=== PATIENT | male | born 1955 | race Caucasian/White ===

== ENCOUNTER 2023-07-01 19:44 | Observation (INO) | payer BC, OTHER ==
[2023-07-01] MEDS ORDERED: SODIUM CHLORIDE 0.9% 1,000 ML IV STA (20:01)
[2023-07-01] MEDS ORDERED: HYDROmorphone 0.5 MG/0.5 ML SYRINGE IVP STA (20:14)
[2023-07-01 20:21] LABS: Basophils % (A) 0 %; Eosinophils # (A) 0.3 k/uL (0-0.7); Eosinophils % (A) 2 %; HCT 39.8 % (39.0-53.0); HGB 13.4 gm/dL (13.0-17.5); Lymphocytes % (A) 13 %; MCHC 33.7 g/dL (31.0-37.0); MCV 92.1 fL (80.0-100.0); Mean Platelet Volume 7.1; Monocytes # (A) 0.7 k/uL (0-1.0); Monocytes % (A) 5 %; Neutrophils # (A) 11.7 k/uL (1.3-7.7); Neutrophils % (A) 79 %; Platelet Count 374 k/uL (150-450); RBC 4.32 m/uL (4.30-5.90); WBC 14.7 k/uL (3.8-10.6)
[2023-07-01 20:38] LABS: ALT 19 U/L (4-49); AST 18 U/L (17-59); African American GFR (CKD) >90 (>60 ml/min/1.73 sqM); Albumin 3.2 g/dL (3.5-5.0); Alkaline Phosphatase 65 U/L (38-126); Anion Gap 5 mmol/L; Blood Urea Nitrogen 14 mg/dL (9-20); Calcium 10.1 mg/dL (8.4-10.2); Carbon Dioxide 25 mmol/L (22-30); Chloride 107 mmol/L (98-107); Glucose 101 mg/dL (74-99); Lipase 18 U/L (23-300); Non-African American GFR(CKD) >90 (>60 ml/min/1.73 sqM); Potassium 3.8 mmol/L (3.5-5.1); Sodium 137 mmol/L (137-145); Total Bilirubin 0.7 mg/dL (0.2-1.3)
--- NOTE | 2023-07-01 21:29 | XR ---
EXAMINATION TYPE: XR KUB DATE OF EXAM: 07/01/2023 8:53 PM INDICATION: Patient age:Male; 67 years old; Reason for study: peg tube placement; COMPARISON: None. TECHNIQUE: One radiographic view of the abdomen was obtained. FINDINGS: PEG tube projects over the left upper quadrant. The bowel gas pattern is nonspecific withou t dilated loops of small or large bowel. There is no evidence for organomegaly or pneumoperitoneum. The osseous structures are intact. No abnormal calcifications are present. Fecal material and gas ar e demonstrated throughout the colon and rectum. IMPRESSION: 1. PEG tube projects over the left upper quadrant. Consider PEG O GRAM to ensure placement in the ga stric lumen. 2. Nonspecific bowel gas pattern without radiographic evidence for acute process.
--- NOTE | 2023-07-01 21:44 | XR ---
EXAMINATION TYPE: XR KUB DATE OF EXAM: 07/01/2023 9:23 PM INDICATION: Patient age:Male; 67 years old; Reason for study: PEG TUBE PLACEMENT; COMPARISON: Same day KUB. TECHNIQUE: TECHNIQUE: AP radiographs of the abdomen were obtained prior to and following administrati on of 60 cc Gastrografin via the patient's PEG tube. Fluoroscopic time:0 min Fluoroscopic images:0 Radiographs taken: 1 FINDINGS: Prior radiograph demonstrates a PEG tube projecting over the region of the stomach. Postcon trast images demonstrate opacification of the gastric lumen without evidence of extravasation of cont rast. Degenerative disc disease is noted throughout the spine. Impression: Opacification of the gastric lumen without evidence of extravasation contrast, consistent with approp riate PEG tube placement.
[2023-07-01] MEDS ORDERED: NALOXONE 0.4 MG/ML 1 ML VIAL IV PRN (22:23)
[2023-07-01] MEDS: SODIUM CHLORIDE 0.9% 1,000 ML IV SCH (22:48)
[2023-07-01] MEDS ORDERED: MELATONIN 3 MG TABLET PO STA (23:58)
[2023-07-02] MEDS: HYDROmorphone 0.5 MG/0.5 ML SYRINGE IVP PRN ×3 (02:31→17:47)
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
[2023-07-02 07:58] LABS: Appearance,Urine Clear (Clear); Bilirubin,Urine Negative (Negative); Blood,Urine Negative (Negative); Color,Urine Yellow; Glucose,Urine (UA) Negative (Negative); Ketones,Urine Negative (Negative); Leukocyte Esterase,Urine Negative (Negative); Nitrite,Urine Negative (Negative); PH, Urine 5.5 (5.0-8.0); Protein,Urine Trace (Negative); Specific Gravity,Urine 1.023 (1.001-1.035); Urobilinogen,Urine <2.0 mg/dL (<2.0)
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
[2023-07-02] MEDS: SODIUM CHLORIDE 0.9% 1,000 ML IV SCH (12:19)
[2023-07-02] MEDS: clonazePAM 0.5 MG TAB PO PRN (12:27)
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
[2023-07-02] MEDS ORDERED: LORazepam 2 MG/ML INJ IV ONE (21:00)
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
[2023-07-03] MEDS: SODIUM CHLORIDE 0.9% 1,000 ML IV SCH ×2 (01:44→17:28)
[2023-07-03] MEDS: PANTOPRAZOLE 40 MG TABLET PO SCH ×2 (08:53→20:58)
[2023-07-03] MEDS: ATORVASTATIN 40 MG TAB PO SCH (08:53)
[2023-07-03 08:58] LABS: Blood Urea Nitrogen 10.2 mg/dL (9.0-27.0); Calcium 9.8 mg/dL (8.7-10.3); Carbon Dioxide 24.4 mmol/L (21.6-31.8); Chloride 107 mmol/L (96-109); Glucose 85 mg/dL (70-110); Potassium 3.9 mmol/L (3.5-5.5); Sodium 139 mmol/L (135-145)
[2023-07-03] MEDS ORDERED: FAMOTIDINE 20 MG TAB PO SCH (09:00)
[2023-07-03] MEDS: HEPARIN SODIUM,PORCINE 5,000 UNIT/ML 1 ML VIAL SQ SCH ×2 (09:27→20:57)
[2023-07-03] MEDS: HYDROmorphone 0.5 MG/0.5 ML SYRINGE IVP PRN ×2 (10:05→13:25)
[2023-07-03 10:59] LABS: Basophils # (A) 0.07 X 10*3/uL (0.00-0.10); Basophils % (A) 0.8 %; Eosinophils # (A) 0.75 X 10*3/uL (0.04-0.35); Eosinophils % (A) 8.2 %; HCT 37.8 % (39.6-50.0); HGB 12.2 d/dL (13.0-17.0); Lymphocytes # (A) 2.47 X 10*3/uL (0.90-5.00); MCH 30.2 pg (27.0-32.0); MCHC 32.3 d/dL (32.0-37.0); MCV 93.6 FL (80.0-97.0); Mean Platelet Volume 9.6 FL (9.5-12.2); Monocytes # (A) 1.11 X 10*3/uL (0.20-1.00); Monocytes % (A) 12.1 %; NRBC Per 100 WBC 0 X 10*3/uL (0.00-0.01); Neutrophils # (A) 4.69 X 10*3/uL (1.80-7.70); Neutrophils % (A) 51.2 %; Platelet Count 387 X 10*3/uL (140-440); RBC 4.04 X 10*6/uL (4.40-5.60); RDW 13.2 % (11.5-14.5); WBC 9.15 X 10*3/uL (4.50-10.00)
--- NOTE | 2023-07-03 12:30 | P.PN ---
Progress Note - Text Progress Note Date: 07/03/23 Orthopedic spine: History of present illness: Patient is a very pleasant 67-year-old male who is seen and examined at bedside for follow-up evaluation of his lumbar spine. He was seen and examined yesterday from an orthopedic standpoint. Patient states currently he is not experiencing any significant low back pain. He denies any lower extremity weakness or radiculopathy bilaterally. He states his back pain is well- controlled. He was able to ambulate the halls today with physical therapy without assistance. He has good range of motion of his bilateral upper extremities and lower extremities without weakness. He does admit to following with Dr. Avery in the outpatient setting and recently underwent an injection at his lumbar spine. He has had previous imaging performed in the outpatient setting but this imaging is not currently available for visualization. Patient does not currently feel he needs treatment specifically in regards to his lumbar spine. Patient is being seen by multiple other medical providers. He does have a r ecent history of bowel perforation requiring surgical intervention. He did fail a barium swallow study and had a PEG tube placement at [facility] on 06/30/2023. Patient did leave the hospital AMA following his PEG tube placement is states he does not know how to manage his PEG tube. Currently he states he is admitted for PEG tube management. Patient's other medical diagnoses include poor oral intake, anxiety, COPD, current every day smoker, history of CA, and history of alcohol abuse. Physical exam: Patient is awake, alert, and oriented 3 Vital signs stable Good chest excursion with deep inspiration and expiration Abdomen soft nontender Examination of lumbar spine reveals skin is intact with no abrasions, lacerations, or bruises; no erythema, purulence or signs of infection Dorsiflexion, plantarflexion, and extensor hallucis longus positive sustained bilaterally Lower extremity strength 5/5 bilaterally Patellar reflex 2+ bilaterally and Achilles reflexes 2+ bilaterally No lower extremity hyperreflexia bilaterally Straight leg test negative bilateral lower extremities Negative Lasegue's test bilaterally No signs or symptoms of DVT; no calf pain No pain with internal and external rotation of the hips bilaterally Neurovascularly intact Assessment: Acute on chronic low back pain, not currently complaining of any significant low back pain History of recent PEG tube placement on 06/30/[address] [facility] after failed swallow study History of bowel perforation requiring surgical intervention COPD Current every day smoker History of CA Anxiety Alcohol abuse Poor oral intake Plan: 1. After physical examination of the patient and further discussion with the patient, we currently planning for him to continue with conservative treatment regards to the patient's lumbar spine. Consultation was placed for low back pain. Patient was seen and examined yesterday in this regard from an orthopedic standpoint. Patient states today he is not experiencing any significant low back pain. He denies any lower extremity weakness or radiculopathy bilaterally. He has good range of motion of his upper extremities as well denies any upper extremity weakness or radiculopathy. He does admit to treatment with pain management and the outpatient setting. He does not currently feel he needs any specific treatment regards to his lumbar spine. He was able to ambulate the hallways today without assistance with physical therapy without significant difficulty. At this time, patient will be cleared for discharge from an orthopedic spine standpoint. We did discuss we'll plan to have him follow-up in approximately 3 weeks the outpatient setting for further evaluation. He has had MRI and x-ray imaging performed through Dr. Avery's office. He'll plan to obtain this imaging prior to his scheduled follow-up appointment. Patient may follow-up with Kaushal Gross PA-C or Dr. Haile Tian at [facility] in 3 weeks following discharge. 2. Patient will continue to be seen exam by multiple other medical providers for his other medical diagnoses including PEG tube management following recent PEG tube placement performed on 06/30/2023.
--- NOTE | 2023-07-03 14:04 | XR ---
EXAMINATION TYPE: XR chest 1V portable DATE OF EXAM: 07/03/2023 COMPARISON: 04/13/2015 HISTORY: Shortness of breath TECHNIQUE: Single frontal view of the chest is obtained. FINDINGS: There is no focal air space opacity, pleural effusion, or pneumothorax seen. The cardiac silhouette size is within normal limits. The osseous structures are intact. Hyperinflation. Ectasia of the aorta. Hypertrophic and degenerative change of the spine. There is a nodule measuring 5 mm ri ght midlung. Chronic widening of the left AC joint. IMPRESSION: 1. No acute infiltrate. Diffuse emphysematous changes. 2. There is a new 5 mm right midlung nodule recommend short-term follow-up chest CT.
[2023-07-03 14:57] VITALS: BMI 18.0
[2023-07-03] MEDS: GABAPENTIN 100 MG CAP PO SCH ×2 (17:21→20:57)
--- NOTE | 2023-07-03 20:34 | PN ---
PROGRESS NOTE DATE OF SERVICE: 07/03/2023 HISTORY OF PRESENT ILLNESS: This is a 67-year-old gentleman who was admitted with poor p.o. intake, had a PEG tube placement. The patient apparently left against medical advice from [facility]. The patient complains of significant weakness, PT OT was evaluating the patient for possible ECF rehab at this time. The most recent chest x-ray which was reviewed personally by me showed some increased bronchovascular markings without any definite infiltrate. Pulmonary nodule was noted, recommended outpatient followup. PAST MEDICAL HISTORY: Reviewed. REVIEW OF SYSTEMS: A 14-point review is negative except as mentioned earlier. CURRENT MEDICATIONS: Reviewed include Singulair. OBJECTIVE: VITAL SIGNS: Pulse is 56, blood pressure 140/70, respirations 16. CHEST: Few scattered rhonchi. ABDOMEN: Soft. PEG tube in situ. NERVOUS SYSTEM: Diffusely weak, emaciated. LABORATORIES: Reviewed. ASSESSMENT: 1. Poor p.o. intake and failure to thrive. 2. Status post PEG tube placement and left AMA from [facility]. 3. Generalized gait dysfunction. 4. [id number] malnutrition. 5. Right lung pulmonary nodule, for outpatient followup. 6. Acute on chronic low back pain. 7. Anxiety. 8. History of recent bowel perforation and surgery. 9. Chronic obstructive pulmonary disease. 10.Depression. 11.Multiple medical issues. RECOMMENDATIONS: Recommended to continue current management, continue symptomatic treatment, continue with PEG tube feeds. Otherwise, resume the home medications, PT OT evaluation, closely for possible ECF rehab versus resume the rest of medications. Guarded prognosis. Further recommendations to follow. MMODL / IJN: [id number] /
[2023-07-03] MEDS: clonazePAM 0.5 MG TAB PO PRN (20:57)
[2023-07-03] MEDS ORDERED: QUEtiapine 200 MG TAB PO SCH (21:00)
[2023-07-03] MEDS ORDERED: MONTELUKAST 10 MG TAB PO SCH (21:00)
[2023-07-04 02:50] VITALS: RESP 14
[2023-07-04] MEDS: SODIUM CHLORIDE 0.9% 1,000 ML IV SCH (03:42)
[2023-07-04] MEDS: HYDROmorphone 0.5 MG/0.5 ML SYRINGE IVP PRN ×3 (04:43→14:09)
[2023-07-04 07:18] LABS: Basophils % (A) 0 %; Eosinophils # (A) 0.5 k/uL (0-0.7); Eosinophils % (A) 6 %; HCT 38.7 % (39.0-53.0); HGB 12.9 gm/dL (13.0-17.5); Lymphocytes # (A) 2.5 k/uL (1.0-4.8); Lymphocytes % (A) 31 %; MCHC 33.5 g/dL (31.0-37.0); MCV 92.6 fL (80.0-100.0); Mean Platelet Volume 7.2; Monocytes # (A) 0.7 k/uL (0-1.0); Monocytes % (A) 8 %; Neutrophils # (A) 4.1 k/uL (1.3-7.7); Neutrophils % (A) 51 %; Platelet Count 355 k/uL (150-450); RBC 4.18 m/uL (4.30-5.90); RDW 12.8 % (11.5-15.5)
[2023-07-04] MEDS: PANTOPRAZOLE 40 MG TABLET PO SCH (08:33)
[2023-07-04] MEDS: ATORVASTATIN 40 MG TAB PO SCH (08:33)
[2023-07-04] MEDS: HEPARIN SODIUM,PORCINE 5,000 UNIT/ML 1 ML VIAL SQ SCH (08:33)
[2023-07-04] MEDS: GABAPENTIN 100 MG CAP PO SCH (08:33)
[2023-07-04] MEDS: clonazePAM 0.5 MG TAB PO PRN (08:53)
[2023-07-04] MEDS ORDERED: lisinopriL 5 MG TAB PO SCH (09:00)
[2023-07-04] MEDS ORDERED: METOPROLOL TARTRATE 12.5 MG TAB PO SCH (09:00)
[2023-07-04 11:49] LABS: Blood Urea Nitrogen 9.9 mg/dL (9.0-27.0); Calcium 9.7 mg/dL (8.7-10.3); Chloride 109 mmol/L (96-109); Glucose 96 mg/dL (70-110); Potassium 4.4 mmol/L (3.5-5.5); Sodium 141 mmol/L (135-145)
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
[2023-07-04 13:13] VITALS: BP 113/77; PULSE 50; TEMP 97.8
--- NOTE | 2023-07-04 15:36 | PN ---
PROGRESS NOTE DATE OF SERVICE: 07/04/2023 SUBJECTIVE: This is a 67-year-old gentleman admitted with dysphagia, also had some poor p.o. intake, had a PEG tube placement. The PEG tube feeding was restarted. The patient appears to be tolerating slightly. The patient is extremely weak and has severe malnutrition. Also, the patient has multiple other medical issues. The chest x-ray, which I reviewed personally today, showed some increased bronchovascular markings. PAST MEDICAL HISTORY: Reviewed. REVIEW OF SYSTEMS: 14-point review of systems is negative except as mentioned earlier. CURRENT MEDICATIONS: Reviewed, include Zestril. Dose and rest of medication noted. PHYSICAL EXAMINATION: VITAL SIGNS: Pulse is 73, blood pressure 136/91, respirations 14. HEENT: Conjunctivae normal. NECK: No jugular venous distention. CARDIOVASCULAR: S1, S2. RESPIRATIONS: A few scattered rhonchi. ABDOMEN: Soft. NERVOUS SYSTEM: Nonfocal. LABORATORY DATA: Reviewed. Hemoglobin 12.9. ASSESSMENT: 1. Poor p.o. intake and failure to thrive, status post PEG tube placement. 2. Left AMA from [facility] recently. 3. Generalized gait dysfunction. 4. [id number] protein-calorie malnutrition. 5. Right lung pulmonary nodule, for outpatient followup. 6. Acute on chronic low back pain. 7. Anxiety. 8. History of recent bowel perforation surgery. 9. Chronic obstructive pulmonary disease. 10.Depression. 11.Multiple medical issues. RECOMMENDATIONS: I recommend to continue current management. PT/OT evaluation. Closely follow with Surgery. DVT prophylaxis. Otherwise, I would recommend reduce IV fluids. Repeat labs. Otherwise, PT/OT evaluation, possible ECF rehab. The patient will require more than 2 midnight stay for evaluation and management of the above-mentioned multiple medical issues. MMODL / IJN: [id number] /
--- NOTE | 2023-07-05 10:04 | DS ---
DISCHARGE SUMMARY FINAL DIAGNOSES: 1. Poor p.o. intake and failure to thrive, status post PEG tube placement. 2. Left AMA from [facility] recently. 3. Generalized gait dysfunction. 4. [id number] protein-calorie malnutrition. 5. Right lung pulmonary nodule, for outpatient followup. 6. Acute on chronic low back pain. 7. Multiple medical issues. DISCHARGE DISPOSITION: The patient left the hospital against medical advice. HISTORY OF PRESENT ILLNESS: This is a 67-year-old gentleman with past medical history as above was admitted with failure to thrive and poor p.o. intake. A PEG tube was restarted. The patient tolerated the PEG tube; however, the patient left the hospital against medical advice before the investigations and treatment could be completed. The prognosis was extremely guarded. Please refer to the previous dictations and progress notes for more information. MMODL / IJN: [id number] /
== END 2023-07-04 17:54 | disposition left against medical advice (07) ==
LOC: EC 19:44 → INTOOBSV 22:23 → 5NMEDONC 22:23
PROVIDERS: ADMIT Internal Medicine; ATTEND Internal Medicine
DX: R62.7 Adult failure to thrive (principal); F31.9 Bipolar disorder, unspecified; J43.9 Emphysema, unspecified; F43.21 Adjustment disorder with depressed mood; F06.4 Anxiety disorder due to known physiological condition; G89.29 Other chronic pain; M54.50 Low back pain, unspecified; R26.9 Unspecified abnormalities of gait and mobility; R91.1 Solitary pulmonary nodule; E43 Unspecified severe protein-calorie malnutrition; F17.200 Nicotine dependence, unspecified, uncomplicated; I25.2 Old myocardial infarction; Z98.890 Other specified postprocedural states; Z93.1 Gastrostomy status; Z95.5 Presence of coronary angioplasty implant and graft; Z79.899 Other long term (current) drug therapy; Z53.29 Procedure and treatment not carried out because of patient's decision for other reasons
CPT/HCPCS: 96376 ×3; 96361 ×3; 96372 ×2; 96375; 96374; 99284; 36415; 97162; 97166; 80053; 80048 ×2; 84443; 83605; 83690; 85025 ×3; 81003; 71045; 74018; G0378 ×4; J2060; J1644 ×2; J1170 ×4